=== PATIENT | female | born 1940 | race Caucasian/White ===

== ENCOUNTER 2020-01-02 01:45 | Emergency (ER) | payer MEDICARE, OTHER ==
[~2020-01-02] VITALS: Ht 157.5 cm; Wt 77.1 kg
--- NOTE | 2020-01-02 01:52 | NUR ---
PT BIBRA C/O GLF AFTER TRYING TO GET OUT OF BED. PT DENIES KO. PT AAO3, RESPIRATIONS EVEN AND UNLABORED ON RA W/ NAD NOTED. PT CONNECTED TO THE MONITOR AND POX.
--- NOTE | 2020-01-02 01:54 | NUR ---
EMT AT BEDSIDE FOR WOUND CARE
--- NOTE | 2020-01-02 01:58 | NUR ---
MOVEMAN AT BEDSIDE FOR BLOOD DRAW
[2020-01-02 02:23] LABS: BASOPHILS # (AUTO) 0.1 /CMM (0.0-0.2); BASOPHILS % (AUTO) 0.6 % (0.0-2.0); EOSINOPHILS % (AUTO) 5.2 % (0.0-6.0); HEMATOCRIT 34 % (33-45); HEMOGLOBIN 10.8 g/dL (11.5-14.8); LYMPHOCYTES # (AUTO) 1.5 /CMM (0.8-4.8); LYMPHOCYTES % (AUTO) 13.4 % (20.0-44.0); MEAN CORPUSCULAR HGB CONC 32 g/dl (31.0-36.0); MEAN CORPUSCULAR VOLUME 83 fL (82-100); MONOCYTES # (AUTO) 0.9 /CMM (0.1-1.30); MONOCYTES % (AUTO) 8.2 % (2.0-12.0); NEUTROPHILS # (AUTO) 8.3 /CMM (1.8-8.9); NEUTROPHILS % (AUTO) 72.6 % (43.0-81.0); PLATELET COUNT (AUTO) 226 /CMM (150-450); RED BLOOD CELL COUNT(AUTO) 4.09 MIL/uL (4.0-5.2); WHITE BLOOD COUNT (AUTO) 11.4 K/uL (4.3-11.0)
--- NOTE | 2020-01-02 02:27 | NUR ---
PT BACK FROM RADIOLOGY. PENDING CT RESULT
[2020-01-02 02:28] LABS: CALCIUM, SERUM 9.9 mg/dL (8.5-10.1); CARBON DIOXIDE 24 mmol/L (21-32); CHLORIDE 106 mmol/L (98-107); CREATININE 1.6 mg/dL (0.6-1.3); GLUCOSE 94 mg/dL (74-106); POTASSIUM 3.8 mmol/L (3.5-5.1); SODIUM SERUM 139 mmol/L (136-145); UREA NITROGEN, BLOOD 25 mg/dL (7-18)
--- NOTE | 2020-01-02 05:34 | NUR ---
MD AT BEDSIDE FOR SUTURES
--- NOTE | 2020-01-02 05:44 | NUR ---
AFTER PROPER SKIN CARE PT RECEIVED STICHES BY DR. FOX . STERI- STRIPS APPLIED AND AREA CLEANED AND PAT- DRIED. PT TOLERATED THE PROCEDURE WELL.
--- NOTE | 2020-01-02 05:55 | NUR ---
Jonathan willingham in [facility] - 01/02/20 at 0556 by ASHLEY JF # [id number]
--- NOTE | 2020-01-02 05:57 | NUR ---
ATTEMPTED TO CALL FOR REPORT ([facility]), NO ANSWER
--- NOTE | 2020-01-02 06:06 | NUR ---
ATTEMPTED TO CALL FOR REPORT ([facility]), NO ANSWER
--- NOTE | 2020-01-02 07:02 | NUR ---
[facility] ETA [phone]
--- NOTE | 2020-01-02 07:07 | NUR ---
ATTEMPTED TO CALL FOR REPORT ([facility]), NO ANSWER
--- NOTE | 2020-01-02 08:00 | NUR ---
Patient in bed, resting, no distress noted.
--- NOTE | 2020-01-02 09:25 | NUR ---
Report given to rufus weathers at [address] [place] [address]
--- NOTE | 2020-01-02 10:00 | NUR ---
CALLED [facility] [phone] NEW ETA [phone]
--- NOTE | 2020-01-02 11:14 | NUR ---
[facility] HERE TO PICKUP PT.
--- NOTE | 2020-01-02 11:18 | NUR ---
REPORT GIVEN TO ELECT[employer] APPLIANCE SERVICER.
--- NOTE | 2020-01-02 11:33 | NUR ---
PATIENT LEFT IN STABLE CONDITION, NO DISTRESS NOTED, STRIPS INTACT. PATIENT'S DIAPER CHANGED. NEEDS ATTENDED. PAPERWORKS GIVEN TO THE FINANCE INTERN. VITALS STABLE.
[2020-01-02 11:34] VITALS: BP 129/71
== END 2020-01-02 11:35 ==
LOC: ER 01:49
DX: S05.42XA Penetrating wound of orbit with or without foreign body, left eye, initial encounter (principal); S09.8XXA Other specified injuries of head, initial encounter; I12.9 Hypertensive chronic kidney disease with stage 1 through stage 4 chronic kidney disease, or unspecified chronic kidney disease; N18.3 Chronic kidney disease, stage 3 (moderate); G93.40 Encephalopathy, unspecified; I48.91 Unspecified atrial fibrillation; E03.9 Hypothyroidism, unspecified; Z95.0 Presence of cardiac pacemaker; W18.39XA Other fall on same level, initial encounter; Y93.89 Activity, other specified; Y92.89 Other specified places as the place of occurrence of the external cause; Y99.8 Other external cause status
CPT/HCPCS: 12013; 36415; 70450; 71045; 80048; 84484; 85025; 85730; 93005; 99285; A6403

== ENCOUNTER 2023-10-30 10:30 | Inpatient (IN) | payer MEDICARE, OTHER ==
[~2023-10-30] VITALS: Ht 157.5 cm; Wt 56.2 kg
[~2023-10-30 10:30] MED LIST: AZIT250T13 PO; LEVO750T46 PO; NITR100C6 PO; RIVA15TA PO
[2023-10-30 11:37] LABS: BASOPHILS # (AUTO) 0.1 K/uL (0.0-0.2); BASOPHILS % (AUTO) 0.4 % (0.0-2.0); EOSINOPHILS # (AUTO) 0.2 K/uL (0.0-0.7); EOSINOPHILS % (AUTO) 0.8 % (0.0-6.0); HEMATOCRIT 22 % (33-45); HEMOGLOBIN 7.1 g/dL (11.5-14.8); LYMPHOCYTES # (AUTO) 0.4 K/uL (0.8-4.8); LYMPHOCYTES % (AUTO) 1.7 % (20.0-44.0); MEAN CORPUSCULAR HEMOGLOBIN 27 PG (26.0-33.0); MEAN CORPUSCULAR HGB CONC 32 g/dl (31.0-36.0); MEAN CORPUSCULAR VOLUME 86 fL (82-100); MONOCYTES # (AUTO) 1.5 K/uL (0.1-1.30); MONOCYTES % (AUTO) 5.8 % (2.0-12.0); NEUTROPHILS # (AUTO) 23.7 K/uL (1.8-8.9); NEUTROPHILS % (AUTO) 91.3 % (43.0-81.0); PLATELET COUNT (AUTO) 104 K/uL (150-450); RED CELL DISTRIBUTION WIDTH 16.9 % (11.5-15.0); WHITE BLOOD COUNT (AUTO) 25.9 K/uL (4.3-11.0)
[2023-10-30 11:49] LABS: CALCIUM, SERUM 9.6 mg/dL (8.5-10.1); CARBON DIOXIDE 34 mmol/L (21-32); CHLORIDE 99 mmol/L (98-107); CREATININE 2.1 mg/dL (0.6-1.3); GLUCOSE 179 mg/dL (74-106); SODIUM SERUM 140 mmol/L (136-145)
[2023-10-30 11:51] LABS: INR 1.17 (0.91-1.10); PARTIAL THROMBOPLASTIN TIME 36.4 SEC (24.3-34.3); PROTHROMBIN TIME 12.3 SECS (9.2-11.1)
[2023-10-30 11:54] LABS: APPEARANCE,URINE CLOUDY (CLEAR); BILIRUBIN,URINE NEGATIVE (NEGATIVE); BLOOD, URINE 3+ Ery/uL (NEGATIVE); COLOR,URINE DARK YELLOW (YELLOW); KETONES,URINE NEGATIVE (NEGATIVE); LEUKOCYTE ESTERASE ,URINE 3+ (NEGATIVE); NITRITE, URINE NEGATIVE (NEGATIVE); PROTEIN,URINE 1+ mg/dl (NEGATIVE); UGLUCOSE NEGATIVE (NEGATIVE)
[2023-10-30 11:55] LABS: ADD URINE CULTURE YES; ALANINE AMINOTRANSFERASE 46 U/L (12-78); ALBUMIN 1.2 g/dL (3.4-5.0); ALKALINE PHOSPHATASE 293 U/L (46-116); ASPARTATE AMINOTRANSFERASE 23 U/L (15-37); BACTERIA,URINE Moderate /HPF (None Seen); BILIRUBIN,DIRECT 0.8 mg/dL (0.0-0.2); POTASSIUM 2.5 mmol/L (3.5-5.1); SQUAMOUS EPITHELIAL CELL,UR Rare /HPF (None Seen); TOTAL PROTEIN, SERUM 7.1 g/dL (6.4-8.2); UREA NITROGEN, BLOOD 83 mg/dL (7-18); WBC,URINE TOO NUMEROUS TO COUN /HPF (0-3)
[2023-10-30] MEDS: PIPERACILLIN /TAZOBACTAM 3.375 G in IV D5W 50 ML IV ONE (11:58)
[2023-10-30 12:06] LABS: LACTIC ACID 2.5 mmol/L (0.4-2.0)
[2023-10-30] MEDS: VANCOMYCIN 1 GM in IV D5W 250 ML IV ONE (12:31)
[2023-10-30] MEDS: IV NS 0.9% 1,000 ML BAG IV ONE (12:44)
[2023-10-30] MEDS ORDERED: SENN-261 PO (12:45)
[2023-10-30] MEDS ORDERED: ASCO500T21 PO (12:45)
[2023-10-30] MEDS ORDERED: DRON2.5C18 PO (12:45)
[2023-10-30] MEDS ORDERED: AMIO100T PO (12:45)
[2023-10-30] MEDS ORDERED: PANT40TA49 PO (12:45)
[2023-10-30] MEDS ORDERED: CALC-261 PO (12:45)
[2023-10-30] MEDS ORDERED: BISA10SU11 RC (12:45)
[2023-10-30] MEDS ORDERED: ACET-73 PO (12:45)
[2023-10-30] MEDS ORDERED: AMLO-212 PO (12:45)
[2023-10-30] MEDS ORDERED: NA P133E RC (12:45)
[2023-10-30] MEDS ORDERED: MONT10TA22 PO (12:45)
[2023-10-30] MEDS ORDERED: MULT-213 PO (12:45)
[2023-10-30] MEDS ORDERED: LACT-246 PO (12:45)
[2023-10-30] MEDS ORDERED: ACET325T53 PO (12:45)
[2023-10-30] MEDS ORDERED: MAGN400O6 PO (12:45)
[2023-10-30] MEDS ORDERED: FERR325T23 PO (12:45)
[2023-10-30] MEDS ORDERED: CRAN300T PO (12:45)
[2023-10-30] MEDS ORDERED: VANC50SO PO (12:45)
[2023-10-30] MEDS ORDERED: ATOR10TA PO (12:45)
[2023-10-30] MEDS ORDERED: DULO20CA19 PO (12:45)
[2023-10-30] MEDS ORDERED: MIRABEGRON PO (12:45)
[2023-10-30] MEDS ORDERED: FOLIC ACID PO (12:45)
[2023-10-30] MEDS ORDERED: LEVO25TA2 PO (12:45)
[2023-10-30] MEDS ORDERED: DOCU100C36 PO (12:45)
[2023-10-30] MEDS ORDERED: HYDR-4303 PO (12:45)
[2023-10-30] MEDS ORDERED: POTASSIUM CL. PREMIX PERIPHER. 200 ML ONE (13:08)
[2023-10-30] MEDS: POTASSIUM CL. PREMIX PERIPHER. 50 ML IV SCH (13:20)
[2023-10-30] MEDS ORDERED: TPN PER PHARMACY IV (13:55)
[2023-10-30] MEDS ORDERED: ONDANSETRON HCL/PF 4 MG/2 ML VIAL IVP PRN (14:00)
[2023-10-30] MEDS ORDERED: HYDROCODONE/APAP 5/325MG TABLET PO PRN (14:00)
[2023-10-30] MEDS ORDERED: ZOLPIDEM TARTRATE 5 MG TABLET PO PRN (14:00)
[2023-10-30] MEDS ORDERED: Z GUARD REMEDY 4 OZ OINT TP PRN (14:00)
[2023-10-30] MEDS ORDERED: MAG HYDROX/AL HYDROX/SIMETH 30 ML UDC PO PRN (14:00)
[2023-10-30] MEDS ORDERED: ACETAMINOPHEN 325 MG TABLET PO PRN (14:00)
[2023-10-30] MEDS ORDERED: MAGNESIUM HYDROXIDE 30 ML UDC PO PRN (14:00)
[2023-10-30 14:07] LABS: MAGNESIUM 2.1 mg/dL (1.8-2.4); PHOSPHORUS 4.6 mg/dL (2.5-4.9)
[2023-10-30] MEDS: IV NS 0.9% 1,000 ML IV PRN (16:46)
[2023-10-30] MEDS: CEFEPIME 2 GM in IV D5W 100 ML IV SCH (17:16)
[2023-10-30 20:00] VITALS: BP 120/72; TEMP 97.3; O2SAT 92
[2023-10-30 20:10] VITALS: O2SAT 97
[2023-10-31] VITALS (11 sets, daily range): BP systolic 121–142; BP diastolic 61–92; TEMP 97.3–98.8; O2SAT 92–97
[2023-10-31 07:07] LABS: CALCIUM, SERUM 9.9 mg/dL (8.5-10.1); CARBON DIOXIDE 30 mmol/L (21-32); CREATININE 1.8 mg/dL (0.6-1.3); GLUCOSE 120 mg/dL (74-106); MAGNESIUM 2.1 mg/dL (1.8-2.4); PHOSPHORUS 4.3 mg/dL (2.5-4.9); UREA NITROGEN, BLOOD 73 mg/dL (7-18)
[2023-10-31 07:30] LABS: BASOPHILS % (AUTO) 0.1 % (0.0-2.0); EOSINOPHILS % (AUTO) 0.1 % (0.0-6.0); HEMATOCRIT 22 % (33-45); LYMPHOCYTES # (AUTO) 0.7 K/uL (0.8-4.8); LYMPHOCYTES % (AUTO) 2.4 % (20.0-44.0); MEAN CORPUSCULAR HEMOGLOBIN 28 PG (26.0-33.0); MEAN CORPUSCULAR HGB CONC 32 g/dl (31.0-36.0); MEAN CORPUSCULAR VOLUME 87 fL (82-100); MONOCYTES # (AUTO) 1.6 K/uL (0.1-1.30); MONOCYTES % (AUTO) 5.3 % (2.0-12.0); NEUTROPHILS % (AUTO) 92.1 % (43.0-81.0); PLATELET COUNT (AUTO) 97 K/uL (150-450); RED BLOOD CELL COUNT(AUTO) 2.49 MIL/uL (4.0-5.2); RED CELL DISTRIBUTION WIDTH 17.1 % (11.5-15.0); WHITE BLOOD COUNT (AUTO) 29.2 K/uL (4.3-11.0)
[2023-10-31] MEDS: PANTOPRAZOLE 40 MG TABLET.DR PO SCH (07:30)
[2023-10-31 07:36] LABS: CHLORIDE 107 mmol/L (98-107); SODIUM SERUM 146 mmol/L (136-145)
[2023-10-31 08:00] LABS: HEMOGLOBIN 6.9 g/dL (11.5-14.8); POTASSIUM 2.6 mmol/L (3.5-5.1)
[2023-10-31 08:47] LABS: HDL CHOLESTEROL 13 mg/dL (40-60); LDL 36 mg/dL (0-99); THYROID STIMULATING HORMONE 0.783 uIU/mL (0.358-3.74); TRIGLYCERIDES 358 mg/dL (30-150)
[2023-10-31 08:59] LABS: CHOLESTEROL 138 mg/dL (<200)
[2023-10-31] MEDS: POTASSIUM CL. PREMIX PERIPHER. 50 ML IV SCH (09:00)
[2023-10-31] MEDS: IV NS 0.9% 1,000 ML IV PRN (09:11)
[2023-10-31 11:49] LABS: ANISOCYTOSIS 1+; BASOPHILS % (MANUAL) 0 % (0.0-2.0); EOSINOPHILS % (MANUAL) 0 % (0-4); HYPOCHROMASIA 1+; LYMPHOCYTES % (MANUAL) 4 % (16-48); MONOCYTES % (MANUAL) 8 % (0-11.0); NEUTROPHILS % (MANUAL) 88 (42-76); PLATELET ESTIMATE DECREASED
[2023-10-31] MEDS ORDERED: VANCOMYCIN 750 MG in IV D5W 250 ML IV SCH (13:00)
[2023-10-31 14:12] LABS: CREATININE, URINE 30.4 MG/DL (30.0-125.0); URINE TOTAL PROTEIN 84.3 mg/dL (0-11.9)
[2023-10-31 18:45] LABS: CALCIUM, SERUM 9.9 mg/dL (8.5-10.1); CARBON DIOXIDE 29 mmol/L (21-32); CHLORIDE 113 mmol/L (98-107); CREATININE 1.7 mg/dL (0.6-1.3); GLUCOSE 127 mg/dL (74-106); POTASSIUM 3.8 mmol/L (3.5-5.1); SODIUM SERUM 149 mmol/L (136-145); UREA NITROGEN, BLOOD 69 mg/dL (7-18)
[2023-11-01] VITALS (7 sets, daily range): BP systolic 106–144; BP diastolic 66–86; TEMP 97.5–98.8; O2SAT 93–97
[2023-11-01] MEDS: VANCOMYCIN 750 MG in IV D5W 250 ML IV SCH (00:28)
[2023-11-01 07:15] LABS: BASOPHILS % (AUTO) 0.1 % (0.0-2.0); EOSINOPHILS # (AUTO) 0.1 K/uL (0.0-0.7); EOSINOPHILS % (AUTO) 0.2 % (0.0-6.0); HEMATOCRIT 27 % (33-45); HEMOGLOBIN 8.8 g/dL (11.5-14.8); LYMPHOCYTES # (AUTO) 0.9 K/uL (0.8-4.8); LYMPHOCYTES % (AUTO) 2.9 % (20.0-44.0); MEAN CORPUSCULAR HEMOGLOBIN 26 PG (26.0-33.0); MEAN CORPUSCULAR HGB CONC 33 g/dl (31.0-36.0); MEAN CORPUSCULAR VOLUME 80 fL (82-100); MONOCYTES # (AUTO) 1.8 K/uL (0.1-1.30); MONOCYTES % (AUTO) 5.9 % (2.0-12.0); NEUTROPHILS # (AUTO) 27.7 K/uL (1.8-8.9); NEUTROPHILS % (AUTO) 90.9 % (43.0-81.0); PLATELET COUNT (AUTO) 72 K/uL (150-450); RED CELL DISTRIBUTION WIDTH 22.4 % (11.5-15.0)
[2023-11-01 07:19] LABS: WHITE BLOOD COUNT (AUTO) 30.4 K/uL (4.3-11.0)
[2023-11-01 07:29] LABS: ALANINE AMINOTRANSFERASE 30 U/L (12-78); ALKALINE PHOSPHATASE 231 U/L (46-116); ASPARTATE AMINOTRANSFERASE 15 U/L (15-37); BILIRUBIN,TOTAL 2.2 mg/dL (0.2-1.0); CALCIUM, SERUM 9.7 mg/dL (8.5-10.1); CARBON DIOXIDE 29 mmol/L (21-32); CHLORIDE 116 mmol/L (98-107); CREATININE 1.6 mg/dL (0.6-1.3); GLUCOSE 114 mg/dL (74-106); PHOSPHORUS 3.2 mg/dL (2.5-4.9); SODIUM SERUM 150 mmol/L (136-145); UREA NITROGEN, BLOOD 61 mg/dL (7-18)
[2023-11-01 07:30] LABS: CREATINE KINASE, TOTAL 6 U/L (26-192)
[2023-11-01] MEDS ORDERED: PANTOPRAZOLE 40 MG TABLET.DR PO SCH (07:30)
[2023-11-01] MEDS: LEVOTHYROXINE SODIUM 25 MCG TABLET PO SCH (07:30)
[2023-11-01 07:39] LABS: ALBUMIN 1.2 g/dL (3.4-5.0)
[2023-11-01 07:48] LABS: LACTIC ACID 1.7 mmol/L (0.4-2.0)
[2023-11-01 08:27] LABS: OCCULT BLOOD STOOL NEGATIVE (NEGATIVE)
[2023-11-01 09:41] LABS: ANISOCYTOSIS 1+; BASOPHILS % (MANUAL) 0 % (0.0-2.0); EOSINOPHILS % (MANUAL) 0 % (0-4); HYPOCHROMASIA 1+; LYMPHOCYTES % (MANUAL) 4 % (16-48); MONOCYTES % (MANUAL) 7 % (0-11.0); NEUTROPHILS % (MANUAL) 89 (42-76); PLATELET ESTIMATE DECREASED; TARGET CELLS 1+
[2023-11-01] MEDS ORDERED: TPN/PPN PER PHARMACY IV PRN (10:00)
[2023-11-01] MEDS: POTASSIUM CL. PREMIX PERIPHER. 50 ML IV SCH (10:23)
[2023-11-01] MEDS: PANTOPRAZOLE 40 MG VIAL IV SCH (10:29)
[2023-11-01] MEDS ORDERED: DEXTROSE 50%-WATER 50 ML DISP.SYRIN IV PRN (10:30)
[2023-11-01] MEDS: TPN BAG #1 IV SCH (12:14)
[2023-11-01] MEDS: BLOOD SUGAR DIAGNOSTIC 1 EACH STRIP IN SCH (12:24)
[2023-11-01] MEDS: FAT EMULSION 20% 500 ML in PREMIX 1 EA IV SCH (15:50)
[2023-11-01] MEDS: FLUCONAZOLE IN NS,PREMIX 200 MG in PREMIX 1 EA IV SCH (20:06)
[2023-11-01] MEDS: METRONIDAZOLE 500MG/ NS 100ML 500 MG in PREMIX 1 EA IV SCH (21:20)
[2023-11-02] VITALS (7 sets, daily range): BP systolic 102–144; BP diastolic 61–87; TEMP 97.3–99.3; O2SAT 93–98
[2023-11-02] MEDS ORDERED: VANCOMYCIN HCL 125 MG/2.5 ML ORAL.SUSP NG SCH
[2023-11-02] MEDS: TPN BAG #2 IV SCH (03:49)
[2023-11-02 07:21] LABS: LACTIC ACID 1.6 mmol/L (0.4-2.0)
[2023-11-02 07:39] LABS: CALCIUM, SERUM 9.3 mg/dL (8.5-10.1); CARBON DIOXIDE 22 mmol/L (21-32); CHLORIDE 118 mmol/L (98-107); CREATININE 1.5 mg/dL (0.6-1.3); GLUCOSE 142 mg/dL (74-106); SODIUM SERUM 151 mmol/L (136-145); UREA NITROGEN, BLOOD 60 mg/dL (7-18)
[2023-11-02 07:45] LABS: POTASSIUM 2.8 mmol/L (3.5-5.1)
[2023-11-02 07:50] LABS: ALANINE AMINOTRANSFERASE 23 U/L (12-78); ALKALINE PHOSPHATASE 222 U/L (46-116); ASPARTATE AMINOTRANSFERASE 19 U/L (15-37); MAGNESIUM 1.8 mg/dL (1.8-2.4); PHOSPHORUS 2.2 mg/dL (2.5-4.9); TOTAL PROTEIN, SERUM 6.9 g/dL (6.4-8.2)
[2023-11-02 07:52] LABS: BASOPHILS % (AUTO) 0.1 % (0.0-2.0); EOSINOPHILS # (AUTO) 0.2 K/uL (0.0-0.7); EOSINOPHILS % (AUTO) 0.5 % (0.0-6.0); HEMATOCRIT 28 % (33-45); HEMOGLOBIN 9.1 g/dL (11.5-14.8); LYMPHOCYTES # (AUTO) 0.9 K/uL (0.8-4.8); LYMPHOCYTES % (AUTO) 2.8 % (20.0-44.0); MEAN CORPUSCULAR HEMOGLOBIN 26 PG (26.0-33.0); MEAN CORPUSCULAR HGB CONC 32 g/dl (31.0-36.0); MEAN CORPUSCULAR VOLUME 82 fL (82-100); MONOCYTES % (AUTO) 3.1 % (2.0-12.0); NEUTROPHILS % (AUTO) 93.5 % (43.0-81.0); PLATELET COUNT (AUTO) 56 K/uL (150-450); RED BLOOD CELL COUNT(AUTO) 3.46 MIL/uL (4.0-5.2); RED CELL DISTRIBUTION WIDTH 22.6 % (11.5-15.0)
[2023-11-02 07:56] LABS: ALBUMIN 1.2 g/dL (3.4-5.0)
[2023-11-02 08:02] LABS: WHITE BLOOD COUNT (AUTO) 33.1 K/uL (4.3-11.0)
[2023-11-02 09:07] LABS: PTH, INTACT 126 pg/mL (15-65)
[2023-11-02] MEDS: POTASSIUM CL. PREMIX PERIPHER. 50 ML IV SCH (09:18)
[2023-11-02] MEDS ORDERED: TPN BAG #4 IV SCH (09:24)
[2023-11-02 10:31] LABS: ANISOCYTOSIS 1+; BAND % (MANUAL) 2 % (0.0-5.0); BASOPHILS % (MANUAL) 0 % (0.0-2.0); EOSINOPHILS % (MANUAL) 0 % (0-4); LYMPHOCYTES % (MANUAL) 5 % (16-48); MONOCYTES % (MANUAL) 6 % (0-11.0); NEUTROPHILS % (MANUAL) 87 (42-76); OVALOCYTES FEW; PLATELET ESTIMATE DECREASED
[2023-11-02] MEDS ORDERED: VANCOMYCIN 750 MG in IV D5W 250 ML IV SCH (13:00)
[2023-11-02] MEDS: VANCOMYCIN 1 GM in IV D5W 250 ML IV SCH (15:02)
[2023-11-02] MEDS: TPN BAG #3 IV SCH (18:53)
[2023-11-02] MEDS: POTASSIUM PHOSPHATE MM 7.5 MMOL in IV NS 0.9% 100 ML IV ONE (20:49)
[2023-11-02] MEDS: MEROPENEM 1 G in IV NS 0.9% 100 ML IV SCH (21:49)
[2023-11-02] MEDS: Magnesium 1GM/D5W 100ML PREMIX 100 ML IV SCH (23:19)
[2023-11-03] VITALS (8 sets, daily range): BP systolic 94–113; BP diastolic 45–69; TEMP 97.3–102.6; O2SAT 93–97
[2023-11-03 00:57] LABS: ABG BASE EXCESS -1.9 mmol/L; ABG OXYGEN SATURATION 88.2 % (92.0-98.5); ABG PCO2 21.8 mmHg (35.0-45.0); ABG PH 7.564 (7.350-7.450); ABG PO2 52.8 mmHg (75.0-100.0); ABG TOTAL HEMOGLOBIN 9.1 G/dL (12.0-16.0); AaDO2 207.3 mmHg; COHb 1.1 % (0.5-1.5); MetHb 0.1 % (0.0-1.5); O2Hb 87.1 % (94.0-97.0); SITE, ABG Right Radial; VENT MODE, BG Nasal Cannula
[2023-11-03] MEDS: ACETAMINOPHEN 650 MG/SUPP.RECT RC PRN (01:02)
[2023-11-03] MEDS: INSULIN REGULAR, HUMAN 100 UNIT/ML 3 ML VIAL SQ PRN (05:43)
[2023-11-03 07:47] LABS: CALCIUM, SERUM 8.8 mg/dL (8.5-10.1); CARBON DIOXIDE 21 mmol/L (21-32); CHLORIDE 121 mmol/L (98-107); CREATININE 2.1 mg/dL (0.6-1.3); GLUCOSE 180 mg/dL (74-106); PHOSPHORUS 2.6 mg/dL (2.5-4.9); POTASSIUM 3.7 mmol/L (3.5-5.1); SODIUM SERUM 149 mmol/L (136-145); UREA NITROGEN, BLOOD 68 mg/dL (7-18)
[2023-11-03 07:53] LABS: BASOPHILS % (AUTO) 0.1 % (0.0-2.0); EOSINOPHILS % (AUTO) 0.1 % (0.0-6.0); HEMATOCRIT 23 % (33-45); HEMOGLOBIN 7.4 g/dL (11.5-14.8); LYMPHOCYTES # (AUTO) 0.5 K/uL (0.8-4.8); MEAN CORPUSCULAR HEMOGLOBIN 26 PG (26.0-33.0); MEAN CORPUSCULAR HGB CONC 32 g/dl (31.0-36.0); MEAN CORPUSCULAR VOLUME 83 fL (82-100); MONOCYTES # (AUTO) 0.7 K/uL (0.1-1.30); MONOCYTES % (AUTO) 2.8 % (2.0-12.0); NEUTROPHILS # (AUTO) 23.6 K/uL (1.8-8.9); RED BLOOD CELL COUNT(AUTO) 2.81 MIL/uL (4.0-5.2); RED CELL DISTRIBUTION WIDTH 22.2 % (11.5-15.0); WHITE BLOOD COUNT (AUTO) 24.8 K/uL (4.3-11.0)
[2023-11-03 08:07] LABS: PLATELET COUNT (AUTO) 40 K/uL (150-450)
[2023-11-03 08:13] LABS: BILIRUBIN,TOTAL 1.6 mg/dL (0.2-1.0)
[2023-11-03] MEDS ORDERED: DEXTROSE 50%-WATER 50 ML DISP.SYRIN IV PRN (09:00)
[2023-11-03] MEDS: TPN BAG #4 IV SCH (09:06)
[2023-11-03 12:20] LABS: ANISOCYTOSIS 1+; BASOPHILS % (MANUAL) 0 % (0.0-2.0); EOSINOPHILS % (MANUAL) 0 % (0-4); LYMPHOCYTES % (MANUAL) 6 % (16-48); MONOCYTES % (MANUAL) 3 % (0-11.0); NEUTROPHILS % (MANUAL) 91 (42-76); OVALOCYTES 1+; PLATELET ESTIMATE DECREASED
[2023-11-03] MEDS: BLOOD SUGAR DIAGNOSTIC 1 EACH STRIP IN SCH (12:42)
[2023-11-03] MEDS: POTASSIUM PHOSPHATE MM 7.5 MMOL in IV NS 0.9% 100 ML IV SCH (17:49)
[2023-11-03] MEDS: Magnesium 1GM/D5W 100ML PREMIX 100 ML IV SCH (20:23)
[2023-11-03] MEDS: TPN BAG #5 IV SCH (23:49)
[2023-11-04] VITALS (48 sets, daily range): BP systolic 64–160; BP diastolic 28–100; TEMP 97.3–102; O2SAT 92–100
[2023-11-04] MEDS: VANCOMYCIN 750 MG in IV D5W 250 ML IV SCH (02:18)
[2023-11-04 03:03] LABS: ABG BASE EXCESS -7.4 mmol/L; ABG OXYGEN SATURATION 95.2 % (92.0-98.5); ABG PCO2 20.2 mmHg (35.0-45.0); ABG PH 7.481 (7.350-7.450); ABG PO2 80.6 mmHg (75.0-100.0); ABG TOTAL HEMOGLOBIN 8.5 G/dL (12.0-16.0); AaDO2 612.2 mmHg; COHb 0.1 % (0.5-1.5); MetHb 0.2 % (0.0-1.5); O2Hb 94.9 % (94.0-97.0); SITE, ABG Right Brachial; VENT MODE, BG NRB
[2023-11-04] MEDS: SODIUM BICARBONATE SYR 50 MEQ/50 ML DISP.SYRIN IV ONE (03:32)
[2023-11-04] MEDS: FUROSEMIDE 40 MG/4 ML VIAL IV ONE (03:32)
[2023-11-04] MEDS: INSULIN REGULAR, HUMAN 100 UNIT/ML 3 ML VIAL SQ PRN (05:15)
[2023-11-04 05:42] LABS: ABG BASE EXCESS -4.5 mmol/L; ABG OXYGEN SATURATION 93.6 % (92.0-98.5); ABG PCO2 20.9 mmHg (35.0-45.0); ABG PH 7.529 (7.350-7.450); ABG PO2 70.6 mmHg (75.0-100.0); ABG TOTAL HEMOGLOBIN 8.9 G/dL (12.0-16.0); AaDO2 621.5 mmHg; COHb 0.3 % (0.5-1.5); O2Hb 93.3 % (94.0-97.0); SITE, ABG Right Radial; VENT MODE, BG NRB MASK
[2023-11-04] MEDS ORDERED: PROPOFOL 100 ML ONE (06:00)
[2023-11-04] MEDS ORDERED: DILTIAZEM HCL IV 125 MG in IV NS 0.9% 100 ML IV PRN (06:30)
[2023-11-04] MEDS: PROPOFOL 100 ML IV PRN (06:33)
[2023-11-04] MEDS: PHENYLEPHRINE 100 MG in IV NS 0.9% 240 ML IV PRN (07:46)
[2023-11-04] MEDS: TPN BAG #5 IV SCH (07:57)
[2023-11-04 08:51] LABS: CALCIUM, SERUM 8.2 mg/dL (8.5-10.1); CARBON DIOXIDE 19 mmol/L (21-32); CHLORIDE 116 mmol/L (98-107); CREATININE 2.5 mg/dL (0.6-1.3); GLUCOSE 156 mg/dL (74-106); MAGNESIUM 2.1 mg/dL (1.8-2.4); PHOSPHORUS 3.7 mg/dL (2.5-4.9); POTASSIUM 3.5 mmol/L (3.5-5.1); SODIUM SERUM 149 mmol/L (136-145)
[2023-11-04 08:58] LABS: UREA NITROGEN, BLOOD 84 mg/dL (7-18)
[2023-11-04 09:02] LABS: TRIGLYCERIDES 448 mg/dL (30-150)
[2023-11-04 09:16] LABS: BASOPHILS # (AUTO) 0.1 K/uL (0.0-0.2); BASOPHILS % (AUTO) 0.2 % (0.0-2.0); EOSINOPHILS % (AUTO) 0.1 % (0.0-6.0); HEMATOCRIT 26 % (33-45); HEMOGLOBIN 8.4 g/dL (11.5-14.8); LYMPHOCYTES # (AUTO) 0.9 K/uL (0.8-4.8); LYMPHOCYTES % (AUTO) 3.3 % (20.0-44.0); MEAN CORPUSCULAR HEMOGLOBIN 27 PG (26.0-33.0); MEAN CORPUSCULAR HGB CONC 32 g/dl (31.0-36.0); MEAN CORPUSCULAR VOLUME 85 fL (82-100); MONOCYTES # (AUTO) 0.6 K/uL (0.1-1.30); MONOCYTES % (AUTO) 2.1 % (2.0-12.0); NEUTROPHILS # (AUTO) 25.2 K/uL (1.8-8.9); NEUTROPHILS % (AUTO) 94.3 % (43.0-81.0); PLATELET COUNT (AUTO) 53 K/uL (150-450); RED BLOOD CELL COUNT(AUTO) 3.12 MIL/uL (4.0-5.2); RED CELL DISTRIBUTION WIDTH 22.8 % (11.5-15.0); WHITE BLOOD COUNT (AUTO) 26.8 K/uL (4.3-11.0)
[2023-11-04] MEDS: HYDROCORTISONE SOD SUCCINATE 100 MG/2 ML VIAL IV SCH (09:50)
[2023-11-04 10:40] LABS: BAND % (MANUAL) 5 % (0.0-5.0); LYMPHOCYTES % (MANUAL) 3 % (16-48); MONOCYTES % (MANUAL) 3 % (0-11.0)
[2023-11-04 10:41] LABS: ANISOCYTOSIS 1+
[2023-11-04 10:42] LABS: PLATELET ESTIMATE DECRE
[2023-11-04] MEDS ORDERED: ETOMIDATE 2 MG/ML VIAL IV ONE (11:56)
[2023-11-04] MEDS ORDERED: TPN BAG #6 IV SCH (12:00)
[2023-11-04] MEDS: Magnesium 1GM/D5W 100ML PREMIX 100 ML IV SCH (12:00)
[2023-11-04] MEDS: PRECEDEX 400 MCG/100 ML BOTTLE 100 ML IV PRN (12:01)
[2023-11-04] MEDS: HYDROMORPHONE MDV 30 MG in IV NS 0.9% 15 ML, PCA TOTAL VOLUME 1 BAG IV PRN (12:35)
[2023-11-04] MEDS: DIGOXIN INJ 0.5 MG/2 ML AMPUL IV SCH (13:05)
[2023-11-04] MEDS: POTASSIUM CL. PREMIX PERIPHER. 50 ML IV SCH (14:03)
[2023-11-04 16:17] LABS: BASOPHILS % (AUTO) 0.1 % (0.0-2.0); EOSINOPHILS % (AUTO) 0.1 % (0.0-6.0); HEMATOCRIT 27 % (33-45); HEMOGLOBIN 8.3 g/dL (11.5-14.8); LYMPHOCYTES # (AUTO) 0.8 K/uL (0.8-4.8); LYMPHOCYTES % (AUTO) 2.3 % (20.0-44.0); MEAN CORPUSCULAR HEMOGLOBIN 26 PG (26.0-33.0); MEAN CORPUSCULAR HGB CONC 31 g/dl (31.0-36.0); MEAN CORPUSCULAR VOLUME 85 fL (82-100); MONOCYTES # (AUTO) 0.7 K/uL (0.1-1.30); MONOCYTES % (AUTO) 1.8 % (2.0-12.0); NEUTROPHILS # (AUTO) 35.3 K/uL (1.8-8.9); NEUTROPHILS % (AUTO) 95.7 % (43.0-81.0); PLATELET COUNT (AUTO) 66 K/uL (150-450); RED BLOOD CELL COUNT(AUTO) 3.15 MIL/uL (4.0-5.2); RED CELL DISTRIBUTION WIDTH 22.9 % (11.5-15.0)
[2023-11-04 16:20] LABS: WHITE BLOOD COUNT (AUTO) 36.9 K/uL (4.3-11.0)
[2023-11-04 16:41] LABS: CALCIUM, SERUM 8.4 mg/dL (8.5-10.1); CARBON DIOXIDE 17 mmol/L (21-32); CHLORIDE 116 mmol/L (98-107); CREATININE 2.8 mg/dL (0.6-1.3); GLUCOSE 122 mg/dL (74-106); POTASSIUM 4.2 mmol/L (3.5-5.1); SODIUM SERUM 147 mmol/L (136-145)
[2023-11-04 16:42] LABS: UREA NITROGEN, BLOOD 89 mg/dL (7-18)
[2023-11-04 17:53] LABS: ANISOCYTOSIS 1+; BAND % (MANUAL) 5 % (0.0-5.0); HYPOCHROMASIA 1+; LYMPHOCYTES % (MANUAL) 1 % (16-48); MYELOCYTES % 1 % (0-0); NEUTROPHILS % (MANUAL) 93 (42-76); PLATELET ESTIMATE DECREASED
[2023-11-04] MEDS: BLOOD SUGAR DIAGNOSTIC 1 EACH STRIP IN SCH (18:00)
[2023-11-04] MEDS ORDERED: INSULIN REGULAR, HUMAN 100 UNIT/ML 3 ML VIAL SQ PRN (18:30)
[2023-11-04] MEDS: IV NS 0.9% 1,000 ML IV PRN (18:59)
[2023-11-05] VITALS (94 sets, daily range): BP systolic 64–121; BP diastolic 33–86; TEMP 98–98.5; O2SAT 87–100
[2023-11-05] MEDS ORDERED: TPN BAG #7 IV SCH (04:00)
[2023-11-05] MEDS: PHENYLEPHRINE 10 MG/ML VIAL ONE ×2 (04:02)
[2023-11-05 05:03] LABS: BASOPHILS # (AUTO) 0.1 K/uL (0.0-0.2); BASOPHILS % (AUTO) 0.2 % (0.0-2.0); EOSINOPHILS % (AUTO) 0.1 % (0.0-6.0); HEMATOCRIT 29 % (33-45); HEMOGLOBIN 8.7 g/dL (11.5-14.8); LYMPHOCYTES % (AUTO) 2.5 % (20.0-44.0); MEAN CORPUSCULAR HEMOGLOBIN 26 PG (26.0-33.0); MEAN CORPUSCULAR HGB CONC 31 g/dl (31.0-36.0); MEAN CORPUSCULAR VOLUME 85 fL (82-100); MONOCYTES # (AUTO) 0.8 K/uL (0.1-1.30); NEUTROPHILS # (AUTO) 37.3 K/uL (1.8-8.9); NEUTROPHILS % (AUTO) 95.2 % (43.0-81.0); PLATELET COUNT (AUTO) 66 K/uL (150-450); RED BLOOD CELL COUNT(AUTO) 3.35 MIL/uL (4.0-5.2); RED CELL DISTRIBUTION WIDTH 23.2 % (11.5-15.0)
[2023-11-05 05:09] LABS: WHITE BLOOD COUNT (AUTO) 39.2 K/uL (4.3-11.0)
[2023-11-05 05:19] LABS: CALCIUM, SERUM 8.2 mg/dL (8.5-10.1); CARBON DIOXIDE 17 mmol/L (21-32); CHLORIDE 117 mmol/L (98-107); CREATININE 2.8 mg/dL (0.6-1.3); GLUCOSE 111 mg/dL (74-106); MAGNESIUM 2.4 mg/dL (1.8-2.4); PHOSPHORUS 7.6 mg/dL (2.5-4.9); POTASSIUM 4.7 mmol/L (3.5-5.1); SODIUM SERUM 148 mmol/L (136-145)
[2023-11-05 05:23] LABS: UREA NITROGEN, BLOOD 98 mg/dL (7-18)
[2023-11-05 06:10] LABS: BAND % (MANUAL) 4 % (0.0-5.0); LYMPHOCYTES % (MANUAL) 4 % (16-48); NEUTROPHILS % (MANUAL) 92 (42-76)
[2023-11-05 06:11] LABS: ANISOCYTOSIS 1+; HYPOCHROMASIA 1+; PLATELET ESTIMATE DECREASED; TEAR DROP CELLS 1+
[2023-11-05] MEDS: VITAL AF 1.2 1,000 ML BOTTLE NG SCH (06:11)
[2023-11-05 08:07] LABS: ABG BASE EXCESS -12.1 mmol/L; ABG OXYGEN SATURATION 89.9 % (92.0-98.5); ABG PCO2 22.5 mmHg (35.0-45.0); ABG PH 7.344 (7.350-7.450); ABG PO2 62.8 mmHg (75.0-100.0); AaDO2 340.3 mmHg; COHb 0.3 % (0.5-1.5); MetHb 0.2 % (0.0-1.5); O2Hb 89.5 % (94.0-97.0); SITE, ABG Right Radial
[2023-11-05] MEDS: PANTOPRAZOLE 40 MG/PACK PACK GT SCH (08:18)
[2023-11-05 12:31] LABS: ABG BASE EXCESS -12.5 mmol/L; ABG PCO2 24.2 mmHg (35.0-45.0); ABG PH 7.318 (7.350-7.450); ABG PO2 64.9 mmHg (75.0-100.0); ABG TOTAL HEMOGLOBIN 9.6 G/dL (12.0-16.0); AaDO2 336.3 mmHg; COHb 0.1 % (0.5-1.5); MetHb 0.1 % (0.0-1.5); O2Hb 89.8 % (94.0-97.0); PEEP,BG 0 cm H2O; SITE, ABG Right Radial; VT, ABG 450 mL
[2023-11-05] MEDS ORDERED: VANCOMYCIN 750 MG in IV D5W 250 ML IV SCH (16:00)
[2023-11-05] MEDS ORDERED: BLOOD SUGAR DIAGNOSTIC 1 EACH STRIP IN SCH (18:00)
[2023-11-05] MEDS: INSULIN REGULAR, HUMAN 100 UNIT/ML 3 ML VIAL SQ PRN (23:57)
[2023-11-06] VITALS (95 sets, daily range): BP systolic 68–115; BP diastolic 25–86; TEMP 98.6–99.5; O2SAT 87–99
[2023-11-06] MEDS: VANCOMYCIN 750 MG in IV D5W 250 ML IV SCH (01:14)
[2023-11-06 05:09] LABS: CALCIUM, SERUM 6.2 mg/dL (8.5-10.1); CARBON DIOXIDE 14 mmol/L (21-32); CHLORIDE 124 mmol/L (98-107); CREATININE 3.2 mg/dL (0.6-1.3); GLUCOSE 177 mg/dL (74-106); MAGNESIUM 2.3 mg/dL (1.8-2.4); PHOSPHORUS 7.9 mg/dL (2.5-4.9); POTASSIUM 5.8 mmol/L (3.5-5.1); SODIUM SERUM 152 mmol/L (136-145)
[2023-11-06 05:14] LABS: UREA NITROGEN, BLOOD 120 mg/dL (7-18)
[2023-11-06 08:26] LABS: ABG BASE EXCESS -14.1 mmol/L; ABG OXYGEN SATURATION 89.7 % (92.0-98.5); ABG PCO2 33.4 mmHg (35.0-45.0); ABG PH 7.199 (7.350-7.450); ABG PO2 69.4 mmHg (75.0-100.0); ABG TOTAL HEMOGLOBIN 8.4 G/dL (12.0-16.0); AaDO2 393.8 mmHg; COHb 0.1 % (0.5-1.5); MetHb 0.3 % (0.0-1.5); O2Hb 89.3 % (94.0-97.0); SITE, ABG Right Radial
[2023-11-06] MEDS ORDERED: NOREPINEPHRINE 32 MG in IV NS 0.9% 218 ML IV PRN (09:00)
[2023-11-06] MEDS ORDERED: MAG HYDROX/AL HYDROX/SIMETH 30 ML UDC NG PRN (13:19)
[2023-11-06] MEDS ORDERED: MAGNESIUM HYDROXIDE 30 ML UDC NG PRN (13:20)
[2023-11-06] MEDS: NOREPINEPHRINE 8 MG in IV D5W 242 ML IV PRN (19:41)
[2023-11-07] VITALS (97 sets, daily range): BP systolic 50–110; BP diastolic 18–78; TEMP 97–103.5; O2SAT 77–100
[2023-11-07] MEDS: NOREPINEPHRINE 8MG/250ML RTU 250 ML IV ONE (02:36)
[2023-11-07] MEDS: VASOPRESSIN INJ 40 UNIT in IV NS 0.9% 38 ML IV PRN (04:06)
[2023-11-07] MEDS: VASOPRESSIN INJ 20 UNIT/ML VIAL ONE (04:16)
[2023-11-07] MEDS: NOREPINEPHRINE 4 MG/4 ML AMPUL IV ONE (04:16)
[2023-11-07] MEDS: NOREPINEPHRINE 32 MG in IV NS 0.9% 218 ML IV PRN (05:05)
[2023-11-07 05:15] LABS: BASOPHILS # (AUTO) 0.1 K/uL (0.0-0.2); BASOPHILS % (AUTO) 0.4 % (0.0-2.0); EOSINOPHILS % (AUTO) 0.1 % (0.0-6.0); HEMATOCRIT 28 % (33-45); HEMOGLOBIN 8.2 g/dL (11.5-14.8); LYMPHOCYTES # (AUTO) 0.8 K/uL (0.8-4.8); LYMPHOCYTES % (AUTO) 2.3 % (20.0-44.0); MEAN CORPUSCULAR HEMOGLOBIN 26 PG (26.0-33.0); MEAN CORPUSCULAR HGB CONC 30 g/dl (31.0-36.0); MEAN CORPUSCULAR VOLUME 88 fL (82-100); MONOCYTES # (AUTO) 0.8 K/uL (0.1-1.30); MONOCYTES % (AUTO) 2.4 % (2.0-12.0); NEUTROPHILS # (AUTO) 32.4 K/uL (1.8-8.9); NEUTROPHILS % (AUTO) 94.8 % (43.0-81.0); PLATELET COUNT (AUTO) 76 K/uL (150-450); RED BLOOD CELL COUNT(AUTO) 3.17 MIL/uL (4.0-5.2); RED CELL DISTRIBUTION WIDTH 24.1 % (11.5-15.0)
[2023-11-07 05:17] LABS: WHITE BLOOD COUNT (AUTO) 34.2 K/uL (4.3-11.0)
[2023-11-07 05:27] LABS: CALCIUM, SERUM 6.5 mg/dL (8.5-10.1); CHLORIDE 118 mmol/L (98-107); CREATININE 3.1 mg/dL (0.6-1.3); GLUCOSE 260 mg/dL (74-106); MAGNESIUM 2.2 mg/dL (1.8-2.4); POTASSIUM 4.8 mmol/L (3.5-5.1); SODIUM SERUM 149 mmol/L (136-145)
[2023-11-07 05:29] LABS: CARBON DIOXIDE 9 mmol/L (21-32); UREA NITROGEN, BLOOD 115 mg/dL (7-18)
[2023-11-07 05:31] LABS: PHOSPHORUS 8.9 mg/dL (2.5-4.9)
[2023-11-07 05:45] LABS: ANISOCYTOSIS 1+; BASOPHILS % (MANUAL) 0 % (0.0-2.0); EOSINOPHILS % (MANUAL) 0 % (0-4); LYMPHOCYTES % (MANUAL) 6 % (16-48); MONOCYTES % (MANUAL) 3 % (0-11.0); NEUTROPHILS % (MANUAL) 91 (42-76); OVALOCYTES 1+; PLATELET ESTIMATE DECREASED
[2023-11-07 08:42] LABS: ABG BASE EXCESS -20.3 mmol/L; ABG OXYGEN SATURATION 98.6 % (92.0-98.5); ABG PCO2 21.2 mmHg (35.0-45.0); ABG PH 7.136 (7.350-7.450); ABG PO2 167.5 mmHg (75.0-100.0); ABG TOTAL HEMOGLOBIN 9.3 G/dL (12.0-16.0); AaDO2 380.6 mmHg; COHb 0.2 % (0.5-1.5); MetHb 0.5 % (0.0-1.5); O2Hb 97.9 % (94.0-97.0); PEEP,BG 0 cm H2O; SITE, ABG Right Radial; VENT MODE, BG AC 80%; VT, ABG 475 mL
[2023-11-07] MEDS: SODIUM BICARBONATE SYR 50 MEQ/50 ML DISP.SYRIN IV ONE (08:59)
[2023-11-07] MEDS: Sodium Bicarbonate 150 MEQ in IV D5W 1,000 ML IV SCH (09:31)
[2023-11-07] MEDS: Sodium Bicarbonate 150 MEQ in IV D5W 1,000 ML IV PRN (10:50)
[2023-11-07] MEDS ORDERED: VANCOMYCIN 500 MG in IV D5W 100 ML IV PRN (11:30)
[2023-11-07 12:06] LABS: *SPE A/G RATIO 0.4 (0.7-1.7); *SPE ALPHA-1-GLOBULIN 0.4 g/dL (0.0-0.4); *SPE ALPHA-2-GLOBULIN 1.1 g/dL (0.4-1.0); *SPE BETA GLOBULIN 0.9 g/dL (0.7-1.3); *SPE GLOBULIN, TOTAL 5.1 g/dL (2.2-3.9); *SPE M-SPIKE 1.9 g/dL (Not Observed); *SPE PROTEIN TOTAL 7.1 g/dL (6.0-8.5); *SPEGAMMA GLOBULIN 2.7 g/dL (0.4-1.8)
[2023-11-07] MEDS: ACETAMINOPHEN 650 MG/20.3 ML UDC NG PRN (12:23)
[2023-11-07] MEDS ORDERED: DOSE PER PHARMACY MICAFUNGIN 1 EA XX PRN (17:00)
[2023-11-07] MEDS: MICAFUNGIN SODIUM 100 MG in IV NS 0.9% 100 ML IV SCH (17:27)
[2023-11-07] MEDS: MEROPENEM 1 G in IV NS 0.9% 100 ML IV SCH (18:25)
[2023-11-08] VITALS (85 sets, daily range): BP systolic 0–75; BP diastolic 0–49; TEMP 96.7–98.4; O2SAT 76–100
[2023-11-08 03:25] LABS: BASOPHILS # (AUTO) 0.2 K/uL (0.0-0.2); BASOPHILS % (AUTO) 0.6 % (0.0-2.0); EOSINOPHILS # (AUTO) 0.1 K/uL (0.0-0.7); EOSINOPHILS % (AUTO) 0.2 % (0.0-6.0); HEMATOCRIT 26 % (33-45); LYMPHOCYTES # (AUTO) 1.3 K/uL (0.8-4.8); MEAN CORPUSCULAR HEMOGLOBIN 26 PG (26.0-33.0); MEAN CORPUSCULAR HGB CONC 27 g/dl (31.0-36.0); MEAN CORPUSCULAR VOLUME 98 fL (82-100); MONOCYTES # (AUTO) 0.7 K/uL (0.1-1.30); MONOCYTES % (AUTO) 2.3 % (2.0-12.0); NEUTROPHILS # (AUTO) 29.5 K/uL (1.8-8.9); NEUTROPHILS % (AUTO) 92.9 % (43.0-81.0); RED BLOOD CELL COUNT(AUTO) 2.66 MIL/uL (4.0-5.2); RED CELL DISTRIBUTION WIDTH 25.2 % (11.5-15.0)
[2023-11-08 03:35] LABS: CALCIUM, SERUM 7.2 mg/dL (8.5-10.1); CHLORIDE 118 mmol/L (98-107); CREATININE 3.6 mg/dL (0.6-1.3); GLUCOSE 93 mg/dL (74-106); MAGNESIUM 2.6 mg/dL (1.8-2.4); SODIUM SERUM 152 mmol/L (136-145)
[2023-11-08 03:38] LABS: WHITE BLOOD COUNT (AUTO) 31.8 K/uL (4.3-11.0)
[2023-11-08 03:39] LABS: HEMOGLOBIN 6.9 g/dL (11.5-14.8); PLATELET COUNT (AUTO) 50 K/uL (150-450)
[2023-11-08 03:43] LABS: CARBON DIOXIDE 5 mmol/L (21-32); PHOSPHORUS 12.4 mg/dL (2.5-4.9); POTASSIUM 6.4 mmol/L (3.5-5.1); UREA NITROGEN, BLOOD 124 mg/dL (7-18)
[2023-11-08] MEDS ORDERED: ALBUTEROL FS 2.5 MG/3 ML VIAL.NEB NEB ONE (04:00)
[2023-11-08] MEDS: CALCIUM CHLORIDE 1,000 MG/10 ML DISP.SYRIN IV ONE (04:32)
[2023-11-08] MEDS: SODIUM BICARBONATE SYR 50 MEQ/50 ML DISP.SYRIN IV ONE (04:35)
[2023-11-08] MEDS: SODIUM POLYSTYRENE SULFONATE 15 G/60 ML BOTTLE PO ONE (04:35)
[2023-11-08 04:40] LABS: ANISOCYTOSIS 1+; BAND % (MANUAL) 1 % (0.0-5.0); BASOPHILS % (MANUAL) 0 % (0.0-2.0); EOSINOPHILS % (MANUAL) 0 % (0-4); LYMPHOCYTES % (MANUAL) 7 % (16-48); MONOCYTES % (MANUAL) 5 % (0-11.0); NEUTROPHILS % (MANUAL) 87 (42-76); PLATELET ESTIMATE DECREASED
[2023-11-08] MEDS: DEXTROSE 50%-WATER 50 ML DISP.SYRIN IV ONE (05:11)
[2023-11-08] MEDS: INSULIN REGULAR, HUMAN 100 UNIT/ML 10 ML VIAL IV ONE (05:14)
[2023-11-08 07:07] LABS: HEPATITIS Be AG Negative (Negative)
[2023-11-08] MEDS: DEXTROSE 50%-WATER 50 ML DISP.SYRIN IV PRN (12:25)
[2023-11-08] MEDS: Sodium Bicarbonate 150 MEQ in IV D5W 1,000 ML IV SCH (16:49)
[2023-11-08] MEDS ORDERED: Sodium Bicarbonate 150 MEQ in IV D5W 1,000 ML IV SCH (17:00)
== END 2023-11-08 23:38 | DRG 870 ==
LOC: ER 11:09 → TELE1 12:45 → ICU 11-04 05:44
PROVIDERS: ATTEND Nurse Practitioner Acute Care
PROC: 30233N1 Transfusion of Nonautologous Red Blood Cells into Peripheral Vein, Percutaneous Approach (ICD-10-PCS; 2023-10-31)
PROC: 5A1955Z Respiratory Ventilation, Greater than 96 Consecutive Hours (ICD-10-PCS; principal; 2023-11-04)
PROC: 0BH18EZ Insertion of Endotracheal Airway into Trachea, Via Natural or Artificial Opening Endoscopic (ICD-10-PCS; 2023-11-04)
PROC: 5A1D70Z Performance of Urinary Filtration, Intermittent, Less than 6 Hours Per Day (ICD-10-PCS; 2023-11-06)
PROC: 0JHL3XZ Insertion of Tunneled Vascular Access Device into Right Upper Leg Subcutaneous Tissue and Fascia, Percutaneous Approach (ICD-10-PCS; 2023-11-06)
PROC: 06HM33Z Insertion of Infusion Device into Right Femoral Vein, Percutaneous Approach (ICD-10-PCS; 2023-11-06)
PROC: B54BZZA Ultrasonography of Right Lower Extremity Veins, Guidance (ICD-10-PCS; 2023-11-06)
DX: A41.02 Sepsis due to Methicillin resistant Staphylococcus aureus (principal); J96.01 Acute respiratory failure with hypoxia; N17.0 Acute kidney failure with tubular necrosis; J15.69 Pneumonia due to other Gram-negative bacteria; R65.21 Severe sepsis with septic shock; N39.0 Urinary tract infection, site not specified; D68.59 Other primary thrombophilia; E46 Unspecified protein-calorie malnutrition; F03.93 Unspecified dementia, unspecified severity, with mood disturbance; E87.0 Hyperosmolality and hypernatremia; B49 Unspecified mycosis; G93.40 Encephalopathy, unspecified; Z51.5 Encounter for palliative care; Z66 Do not resuscitate; Z20.822 Contact with and (suspected) exposure to COVID-19; I12.9 Hypertensive chronic kidney disease with stage 1 through stage 4 chronic kidney disease, or unspecified chronic kidney disease; N18.30 Chronic kidney disease, stage 3 unspecified; E78.5 Hyperlipidemia, unspecified; I48.91 Unspecified atrial fibrillation; D69.6 Thrombocytopenia, unspecified; E03.9 Hypothyroidism, unspecified; Z95.0 Presence of cardiac pacemaker; Y95 Nosocomial condition; L89.156 Pressure-induced deep tissue damage of sacral region; F32.A Depression, unspecified; E87.6 Hypokalemia; E88.09 Other disorders of plasma-protein metabolism, not elsewhere classified; D64.9 Anemia, unspecified; Z79.01 Long term (current) use of anticoagulants; Z79.890 Hormone replacement therapy; Z79.899 Other long term (current) drug therapy; Z99.81 Dependence on supplemental oxygen; E86.0 Dehydration; E86.9 Volume depletion, unspecified; Z87.19 Personal history of other diseases of the digestive system; Z87.448 Personal history of other diseases of urinary system; M48.00 Spinal stenosis, site unspecified; N20.0 Calculus of kidney; A41.81 Sepsis due to Enterococcus
CPT/HCPCS: 31720; 36415; 36600; 70450-TC; 71045-TC; 71250-TC; 74018; 76770-TC; 80048-TC; 80053-TC; 80061-TC; 80076-TC; 80202-TC; 81001; 82272-TC; 82533; 82550-TC; 82570-TC; 82803-TC; 82962-TC; 83605-TC; 83735-TC; 83970; 84100-TC; 84155; 84165; 84300-TC; 84443-TC; 84478-TC; 84484-TC; 85025-TC; 85730-TC; 86707; 86850-TC; 87040-TC; 87081-TC; 87086-TC; 87186-TC; 87350; 90935-TC; 92526; 92611-TC; 93307-TC; 94002-TC; 94003-TC; 94640-TC; 94760-TC; 94799-TC; 97110-TC; 97530-TC; A4216; A4223; C9113; G0378; J0330; J0692; J1160; J1170; J1450; J1720; J1815; J1940; J2185; J2248; J2543; J3370; J3371; J3475; J3480; J3490; J7030; J7040; J7050; J7060; J7070; P9016